=== PATIENT | male | born 2000 | race African-American/Black ===

== ENCOUNTER 2023-03-06 09:55 | Inpatient (IN) | payer MEDICAID ==
[~2023-03-06] VITALS: Ht 180.3 cm; Wt 52.2 kg
[2023-03-06 10:26] LABS: BASOPHILS % (AUTO) 0.4 % (0.0-2.0); EOSINOPHILS % (AUTO) 0.3 % (0.0-4.0); HEMATOCRIT 48.8 % (36-52); HEMOGLOBIN 16.8 g/dL (12.0-18.0); LYMPHOCYTES # (AUTO) 1.3 K/uL (2.0-11.5); LYMPHOCYTES % (AUTO) 12.9 % (20.5-51.1); MEAN CORPUSCULAR HEMOGLOBIN 32 pg (27-31); MEAN CORPUSCULAR HGB CONC 35 g/dL (33-37); MEAN CORPUSCULAR VOLUME 91.8 fL (80-94); MONOCYTES # (AUTO) 0.4 K/uL (0.8-1.0); MONOCYTES % (AUTO) 4.5 % (1.7-9.3); NEUTROPHILS # (AUTO) 8.2 K/uL (1.8-7.7); NEUTROPHILS % (AUTO) 81.9 % (42.2-75.2); PLATELET COUNT (AUTO) 236 K/uL (140-450); RED BLOOD CELL COUNT(AUTO) 5.32 MIL/uL (4.20-6.10); RED CELL DISTRIBUTION WIDTH 13.5 % (11.6-13.7)
[2023-03-06 10:37] LABS: ANION GAP 14.5 (8-16); CALCIUM 9.9 mg/dL (8.5-10.1); CARBON DIOXIDE 28.6 mmol/L (21-32); CREATININE 1.1 mg/dL (0.6-1.3); POTASSIUM 4.1 mmol/L (3.5-5.1)
[2023-03-06] MEDS: buprenorphine HCL 2 MG sublingual tab SL ONE ×2 (10:39→11:49)
[2023-03-06 10:50] LABS: INR 1.05 (0.8-1.2)
[2023-03-06] MEDS: ONDANSETRON 4 MG/2 ML VIAL IVP ONE (10:54)
[2023-03-06] MEDS: LORazepam 2 MG/ML VIAL IVP ONE ×3 (10:59→13:13)
[2023-03-06 11:00] VITALS: BP 118/64; PULSE 92; RESP 21; TEMP 97.5; O2SAT 99
[2023-03-06 11:17] LABS: ALANINE AMINOTRANSFERASE 32 U/L (12-78); ALBUMIN 4.3 g/dL (3.4-5.0); ALKALINE PHOSPHATASE 103 U/L (50-136); ASPARTATE AMINOTRANSFERASE 36 U/L (15-37); BILIRUBIN,DIRECT 0.1 mg/dL (0.0-0.3); SALICYLATE 3.4 mg/dL (2.8-20.0); TOTAL BILIRUBIN 0.8 mg/dL (0.0-1.0); TOTAL PROTEIN, SERUM 9.4 g/dL (6.4-8.2)
[2023-03-06 11:20] LABS: ACETAMINOPHEN < 0.5 ug/ml (10-30); ALCOHOL, BLOOD < 3 mg/dL (<10)
[2023-03-06] MEDS: HALOPERIDOL IM 5 MG/ML VIAL IM ONE ×2 (12:40→14:46)
[2023-03-06] MEDS: diphenhydrAMINE 50 MG/ML VIAL IVP ONE (13:11)
[2023-03-06] MEDS: KETAMINE HCL 50 mg/5 mL UD SYRINGE IV ONE (13:40)
[2023-03-06] MEDS ORDERED: KETAMINE 500 MG/5 ML VIAL IM ONE (15:45)
[2023-03-06 16:09] LABS: APPEARANCE,URINE CLEAR (CLEAR); BILIRUBIN,URINE NEGATIVE (NEGATIVE); BLOOD, URINE TRACE-I (NEGATIVE); COLOR,URINE YELLOW (YELLOW); LEUKOCYTE ESTERASE ,URINE TRACE (NEGATIVE); NITRITE, URINE NEGATIVE (NEGATIVE); PROTEIN,URINE TRACE (NEGATIVE); UGLUCOSE NEGATIVE (NEGATIVE); UROBILINOGEN,URINE 0.2 EU/dL (0.2 - 1)
[2023-03-06 16:33] LABS: AMPHETAMINE, URINE NEGATIVE ng/ml (NEG <=1000); BARBITURATE, URINE NEGATIVE ng/ml (NEG <=200); BENZODIAZEPINE, URINE POSITIVE ng/mL (NEG <=200); CANNABINOID, URINE NEGATIVE ng/mL (NEG <=50); COCAINE, URINE NEGATIVE ng/mL (NEG <=300); OPIATE, URINE NEGATIVE ng/mL (NEG <=2000); PHENCYCLIDINE SCREEN,URINE NEGATIVE ng/mL (NEG <=25)
[2023-03-06 16:36] LABS: BACTERIA,URINE FEW /HPF (None Seen); MUCUS,URINE 1+ /LPF (None Seen); SQUAMOUS EPITHELIAL CELL,UR 80-100 /LPF (0-3 (FEW)); TRICHOMONAS,URINE None Seen /HPF (None Seen); WBC,URINE 0-5 /HPF (0-5); YEAST,URINE None Seen /HPF (None Seen)
[2023-03-06] MEDS: NACL 0.9% 2,000 ML IV ONE (16:38)
[2023-03-06] MEDS: MIDAZOLAM 5 MG/5 ML VIAL IM ONE (16:47)
[2023-03-06] MEDS: KETAMINE 500 MG/5 ML VIAL IVP ONE (16:49)
[2023-03-06] MEDS: OLANZapine 10 MG VIAL IM ONE (18:00)
[2023-03-06] MEDS ORDERED: LORazepam 1 MG TAB PO PRN (18:15)
[2023-03-06] MEDS ORDERED: ONDANSETRON 4 MG/2 ML VIAL IVP PRN (18:15)
[2023-03-06] MEDS ORDERED: OLANZapine 5 MG ODT ONE (19:19)
[2023-03-06] MEDS ORDERED: OLANZapine 10 MG VIAL IM ONE (19:23)
[2023-03-06] MEDS: hydrALAZINE 20 MG/ML VIAL IVP ONE (22:20)
[2023-03-06] MEDS: NACL 0.9% 1,000 ML IV SCH (23:30)
[2023-03-07 07:53] LABS: BASOPHILS % (AUTO) 0.4 % (0.0-2.0); HEMATOCRIT 42.6 % (36-52); HEMOGLOBIN 14.6 g/dL (12.0-18.0); LYMPHOCYTES # (AUTO) 1.9 K/uL (2.0-11.5); LYMPHOCYTES % (AUTO) 18.5 % (20.5-51.1); MEAN CORPUSCULAR HEMOGLOBIN 32 pg (27-31); MEAN CORPUSCULAR HGB CONC 34 g/dL (33-37); MEAN CORPUSCULAR VOLUME 91.8 fL (80-94); MONOCYTES # (AUTO) 0.9 K/uL (0.8-1.0); MONOCYTES % (AUTO) 9.1 % (1.7-9.3); NEUTROPHILS # (AUTO) 7.4 K/uL (1.8-7.7); PLATELET COUNT (AUTO) 205 K/uL (140-450); RED BLOOD CELL COUNT(AUTO) 4.64 MIL/uL (4.20-6.10); RED CELL DISTRIBUTION WIDTH 13.4 % (11.6-13.7); WHITE BLOOD COUNT (AUTO) 10.3 K/uL (4.8-10.8)
[2023-03-07 08:08] LABS: ANION GAP 13.1 (8-16); CALCIUM 9.1 mg/dL (8.5-10.1); CARBON DIOXIDE 25.8 mmol/L (21-32); CREATININE 1.1 mg/dL (0.6-1.3); POTASSIUM 3.9 mmol/L (3.5-5.1)
[2023-03-07] MEDS ORDERED: HALOPERIDOL IM 5 MG/ML VIAL IM PRN (09:25)
[2023-03-07] MEDS: HYDROcodone/APAP 5/325 MG 1 TAB TAB PO PRN (13:01)
[2023-03-07 17:51] VITALS: BP 109/74; PULSE 75; RESP 16; TEMP 97.9; O2SAT 97
[2023-03-07 17:59] VITALS: PULSE 75; O2SAT 97
[2023-03-07] MEDS: ZOLPIDEM 5 MG TAB PO PRN (18:35)
[2023-03-07 20:00] VITALS: BP 110/66; PULSE 66; PULSE 82; RESP 18; TEMP 99.4; O2SAT 97
[2023-03-07] MEDS: LORazepam 1 MG TAB PO PRN (21:27)
[2023-03-08 02:20] VITALS: BP 104/59; PULSE 66; RESP 18; TEMP 98.8; O2SAT 97
[2023-03-08 07:07] LABS: BASOPHILS % (AUTO) 0.5 % (0.0-2.0); EOSINOPHILS % (AUTO) 0.3 % (0.0-4.0); HEMOGLOBIN 15.2 g/dL (12.0-18.0); LYMPHOCYTES # (AUTO) 2.3 K/uL (2.0-11.5); LYMPHOCYTES % (AUTO) 28.9 % (20.5-51.1); MEAN CORPUSCULAR HEMOGLOBIN 32 pg (27-31); MEAN CORPUSCULAR HGB CONC 35 g/dL (33-37); MEAN CORPUSCULAR VOLUME 91.9 fL (80-94); MONOCYTES # (AUTO) 0.7 K/uL (0.8-1.0); MONOCYTES % (AUTO) 8.2 % (1.7-9.3); NEUTROPHILS % (AUTO) 62.1 % (42.2-75.2); PLATELET COUNT (AUTO) 204 K/uL (140-450); RED BLOOD CELL COUNT(AUTO) 4.78 MIL/uL (4.20-6.10); RED CELL DISTRIBUTION WIDTH 13.4 % (11.6-13.7); WHITE BLOOD COUNT (AUTO) 8.1 K/uL (4.8-10.8)
[2023-03-08 08:59] LABS: ANION GAP 16.7 (8-16); CARBON DIOXIDE 24.1 mmol/L (21-32); CREATININE 1.1 mg/dL (0.6-1.3); POTASSIUM 3.8 mmol/L (3.5-5.1)
== END 2023-03-08 10:30 | disposition left against medical advice (07) | DRG 812 ==
LOC: MED 09:55 → EDBD 09:55 → MMU 18:14 → MTU 03-07 17:15
PROVIDERS: ADMIT Student in an Organized Health Care Education/Training Program; ATTEND Student in an Organized Health Care Education/Training Program
DX: T40.411A Poisoning by fentanyl or fentanyl analogs, accidental (unintentional), initial encounter (principal); G93.41 Metabolic encephalopathy; F11.10 Opioid abuse, uncomplicated; F19.129 Other psychoactive substance abuse with intoxication, unspecified; F15.10 Other stimulant abuse, uncomplicated; T65.91XA Toxic effect of unspecified substance, accidental (unintentional), initial encounter; Y92.9 Unspecified place or not applicable
CPT/HCPCS: 36415; 70450; 80048; 80076; 80305; 81001; 83735; 85025; 85610; 93005; 96361; 96372; 96374; 96375; 96376; 99291; 99292; G0480; G0482; J1200; J1630; J2060; J2250; J2405; J3490